=== PATIENT | male | born 1980 | race Caucasian/White ===

== ENCOUNTER 2017-01-20 17:55 | Emergency (ER) | payer SELFPAY ==
[2017-01-20 18:08] VITALS: BP 118/67; PULSE 85; RESP 18; TEMP 97.7; O2SAT 95
--- NOTE | 2017-01-20 18:31 | EDPHY ---
H & P Time Seen by Provider: 01/20/17 17:58 HPI/ROS: CHIEF COMPLAINT: Infection left index finger HISTORY OF PRESENT ILLNESS: 36-year-old male presents to the emergency department with pain and swelling to his left index finger. The patient thinks that he was bit by something yesterday. He has noted pain and swelling to the left index finger. Denies any other known trauma or injury. No fevers or chills. He does not believe he has any foreign bodies in his finger. His tetanus shot is current. Right-hand dominant. ROS: Denies numbness or tingling in his fingers, retained foreign body, pain in his left wrist or elbow. Denies pain or swelling in his left axilla. Past Medical/Surgical History: Negative Social History: From [place] Smoking Status: Current every day smoker Physical Exam: On examination the patient has appears to be a large vesicle to the dorsal aspect of the left index finger overlying mid phalanx. Tender to palpate. No bony tenderness however. No lymphangitis. Full range of motion of the finger. Constitutional: Initial Vital Signs Temperature (C) 36.5 C 01/20/17 18:06 Heart Rate 85 01/20/17 18:06 Respiratory Rate 18 01/20/17 18:06 Blood Pressure 118/67 01/20/17 18:06 O2 Sat (%) 95 01/20/17 18:06 O2 Delivery Mode Room Air Allergies/Adverse Reactions: No Known Allergies Allergy (Unverified 01/20/17 18:08) Home Medications: Medication Instructions Recorded Cephalexin [Keflex] 500 mg PO QID #28 cap 01/20/17 MDM/Departure - MDM Procedures: After consent was obtained from the patient, the skin was cleansed with chlorhexidine and small puncture was made to the vesicular lesion. Initially mostly serous fluid was expressed and then some pus was expressed. This was then thoroughly cleansed and bacitracin and dressing applied. This was performed by myself. Patient tolerated this well. ED Course/Re-evaluation: 36-year-old male presents with infection in his left index finger. The vesicle was drained, however there was a little bit of purulent material that was expressed as well. Bacitracin dressing applied. The patient will be started on Keflex. The patient had immediate relief after the fluid was drained. He has full range of motion of his fingers. I do not think IV antibiotics are indicated. I do not think x-rays are indicated. Patient was instructed to return if he developed lymphangitis, fever or any other concerns. - Depart Disposition: Home, Routine, Self-Care Clinical Impression: infection left 2nd finger Condition: Good Instructions: Cellulitis (ED) Additional Instructions: Soak finger in warm water for 15-20 minutes every 2-3 hours especially today and tomorrow. Apply antibiotic ointment after soaking her finger. Keflex 500 mg 4 times daily times 7 days. Return to the emergency department if you notice any signs or symptoms of infection such as redness, swelling, increased pain, fever, purulent drainage. Prescriptions: Cephalexin [Keflex] 500 mg PO QID #28 cap
== END 2017-01-20 19:05 | disposition home or self-care (01) ==
DX: L08.9 Local infection of the skin and subcutaneous tissue, unspecified (principal); F17.200 Nicotine dependence, unspecified, uncomplicated